=== PATIENT | female | born 1985 | race Caucasian/White ===

== ENCOUNTER 2018-05-24 14:59 | Emergency (ER) | payer MEDICAID ==
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
== END 2018-05-24 22:17 ==
LOC: JP.ED 14:59
DX: R45.851 Suicidal ideations (principal); Z88.0 Allergy status to penicillin; Z88.1 Allergy status to other antibiotic agents
CPT/HCPCS: 36415; 80048; 80305; 81001; 81025; 84443; 85027; 99285; G0480